=== PATIENT | male | born 1950 | race Caucasian/White ===

== ENCOUNTER 2021-12-30 19:15 | Inpatient (IN) | payer MEDICARE ==
[~2021-12-30] VITALS: Ht 172.7 cm; Wt 59.0 kg
[2021-12-30 19:59] LABS: BASOPHILS ABSOLUTE AUTO 0.08 K/mm3 (0.00-0.23); BASOPHILS PERCENT AUTO 1 % (0-2); EOSINOPHILS ABSOLUTE AUTO 0.17 K/mm3 (0.00-0.68); EOSINOPHILS PERCENT AUTO 1 % (0-6); Hematocrit 42.3 % (37.0-53.0); Hemoglobin 14.4 g/dL (13.5-17.5); IMMATURE GRAN ABSOLUTE AUTO 0.04 K/mm3 (0.00-0.10); IMMATURE GRAN PERCENT AUTO 0 % (0-1); LYMPHOCYTES ABSOLUTE AUTO 1.54 K/mm3 (0.84-5.20); LYMPHOCYTES PERCENT AUTO 10 % (21-46); MONOCYTES ABSOLUTE AUTO 1.75 K/mm3 (0.16-1.47); MONOCYTES PERCENT AUTO 12 % (4-13); Mean Corpuscular HGB 31.3 pg (26.0-34.0); Mean Corpuscular Volume 92 fL (80-100); Mean Platelet Volume 8.8 fL (9.1-12.4); NEUTROPHILS ABSOLUTE AUTO 11.63 K/mm3 (1.96-9.15); NEUTROPHILS PERCENT AUTO 77 % (41-73); Platelet Count 344 K/mm3 (150-400); RDW Coefficient Variation 11.3 % (11.7-14.2); RDW Standard Deviation 38.4 fL (35.1-46.3); White Blood Cell Count 15.21 K/mm3 (4.00-11.30)
[2021-12-30 20:16] LABS: Alanine Aminotransfer (ALT/SGP 20 U/L (12-78); Albumin, Blood 3.4 g/dL (3.4-5.0); Albumin/Globulin Ratio 0.7 (0.8-1.8); Alk Phos 100 U/L (50-136); Anion Gap 8 mmol/L (6-16); Aspartate Aminotrans (AST/SGOT 17 U/L (12-37); Bilirubin, Total 0.4 mg/dL (0.1-1.0); Blood Urea Nitrogen 13 mg/dL (8-24); CO2, Blood 27 mmol/L (21-32); Chloride, Blood 101 mmol/L (98-108); Creatinine, Blood 0.87 mg/dL (0.60-1.20); Globulin, Blood 4.7 g/dL (2.2-4.0); Glomerular Filtration Rate >60 (60-); Glucose, Blood 102 mg/dL (70-99); Potassium, Blood 3.6 mmol/L (3.5-5.5); Sodium, Blood 136 mmol/L (136-145); Total Protein, Blood 8.1 g/dL (6.4-8.2)
[2021-12-30 20:50] LABS: Source, Urine Clean Catch
[2021-12-30 20:54] LABS: Bilirubin, Urine Neg (Neg); Blood, Urine Neg (Neg); Glucose Qualitative, Urine Neg (Neg); Ketones, Urine Neg (Neg); Leukocyte Esterase, Urine Neg (Neg); Nitrite, Urine Neg (Neg); Protein, Urine Neg (Neg); Specific Gravity, Urine 1.015 (1.003-1.022); Urobilinogen, Urine NORM (Normal)
[2021-12-30 21:10] LABS: Appearance, Urine Clear (Clear); Color, Urine Yellow (P-Yellow)
--- NOTE | 2021-12-31 03:34 | NUR ---
PATIENT IS A NEW ADMIT FROM THE ED. AXOX 4 AND SELF TRANSFER FROM [facility] TO BED. NS INFUSING FROM THE ED @100 mL/HR. REPORTS MINIMAL LLQ PAIN WITH A 2/10 ON THE PAIN SCALE, NOT ABLE TO DESCRIBE THE PAIN AT THIS TIME. SPOUSE PRESENT ON ADMIT. REPORTS NO SURGICAL HX AND ON NO MEDICATION. SURGICAL CONSULT CALLED INTO DR RUTLEDGE ANSWERING SERVICE. ON ROOM AIR. TELEMETRY PLACED AND NSR 75. DENIES SOB AND N/V. VSS/AFEBRILE. ORIENTED TO ROOM AND CALL LIGHT SYSTEM. WILL CONTINUE TO MONITOR.
[2021-12-31 08:31] LABS: BASOPHILS ABSOLUTE AUTO 0.07 K/mm3 (0.00-0.23); BASOPHILS PERCENT AUTO 1 % (0-2); EOSINOPHILS ABSOLUTE AUTO 0.21 K/mm3 (0.00-0.68); EOSINOPHILS PERCENT AUTO 2 % (0-6); Hematocrit 38.5 % (37.0-53.0); IMMATURE GRAN ABSOLUTE AUTO 0.04 K/mm3 (0.00-0.10); IMMATURE GRAN PERCENT AUTO 0 % (0-1); LYMPHOCYTES ABSOLUTE AUTO 1.73 K/mm3 (0.84-5.20); LYMPHOCYTES PERCENT AUTO 14 % (21-46); MONOCYTES ABSOLUTE AUTO 1.68 K/mm3 (0.16-1.47); MONOCYTES PERCENT AUTO 14 % (4-13); Mean Corpuscular HGB 31.3 pg (26.0-34.0); Mean Corpuscular HGB Conc 33.8 g/dL (31.5-36.5); Mean Corpuscular Volume 93 fL (80-100); Mean Platelet Volume 8.7 fL (9.1-12.4); NEUTROPHILS ABSOLUTE AUTO 8.47 K/mm3 (1.96-9.15); NEUTROPHILS PERCENT AUTO 69 % (41-73); Platelet Count 301 K/mm3 (150-400); RDW Coefficient Variation 11.5 % (11.7-14.2); RDW Standard Deviation 39.1 fL (35.1-46.3); Red Blood Cell Count 4.15 M/mm3 (4.30-5.90)
[2021-12-31 08:51] LABS: Alanine Aminotransfer (ALT/SGP 17 U/L (12-78); Albumin, Blood 2.9 g/dL (3.4-5.0); Albumin/Globulin Ratio 0.7 (0.8-1.8); Alk Phos 79 U/L (50-136); Anion Gap 9 mmol/L (6-16); Aspartate Aminotrans (AST/SGOT 13 U/L (12-37); Bilirubin, Total 0.5 mg/dL (0.1-1.0); Blood Urea Nitrogen 11 mg/dL (8-24); Bun/Creatinine Ratio 13.4 (12.0-20.0); CO2, Blood 25 mmol/L (21-32); Calcium, Blood 8.4 mg/dL (8.5-10.1); Chloride, Blood 108 mmol/L (98-108); Creatinine, Blood 0.82 mg/dL (0.60-1.20); Globulin, Blood 4.1 g/dL (2.2-4.0); Glomerular Filtration Rate >60 (60-); Glucose, Blood 100 mg/dL (70-99); Potassium, Blood 3.9 mmol/L (3.5-5.5); Sodium, Blood 142 mmol/L (136-145)
--- NOTE | 2021-12-31 09:34 | NUR ---
PAGED DR RUTLEDGE- PT IS NPO AND WOULD LIKE TO KNOW WHEN THE DR WILL BE COMING IN TO SEE HIM AND IF HE NEEDS TO BE NPO TODAY FOR POSSIBLE PROCEDURE. PT SPOUSE IS AT THE BEDSIDE AND NEEDS TO LEAVE FOR AN APPOINTMENT BUT DOES NOT WANT TO MISS THE DR ROUNDING.
[2021-12-31] MEDS ORDERED: FLAX PO (15:18)
[2021-12-31] MEDS ORDERED: CENTRUM SILVER1 EAC2 PO (15:18)
--- NOTE | 2021-12-31 15:26 | NUR ---
Patient tells me about his possible upcoming procedure or the possibility of managing his symptoms with medication. He admits to being nervous about anything that might be invasive at all. Pt then talks at length about his love of family, of God and of music. Pt plays guitar and it is what inspires and fills him. I provide therapeutic lsitening, anxiety containment and prayer. Pt responds well and shows signs of increased peace.
--- NOTE | 2021-12-31 19:59 | NUR ---
SHIFT SUMMARY- DR RUTLEDGE CAME TO SEE THE PT THIS EVENING, HE EXPLAINED WHAT THE PLAN IS GOING FORWARD. HE STATED HE WILL NOT TAKE THE PT STRAIGHT TO SURGERY HE WOULD LIKE TO CONTINUE IV ABX FOR SEVERAL DAYS AND SEE IF IT CLEARS UP WITHOUT BEING SO INVASIVE. THE PT IS VERY AGREEABLE TO THIS. DR RUTLEDGE TOLD THE PT HE WILL LIKELY BE IN THE HOSPITAL FOR 4-5 DAYS, PT IS AWARE AND AGREEABLE. PASSED ALL ON IN BEDSIDE REPORT WITH NIGHT RN. PT CURRENTLY SITTING UP IN BED CALL LIGHT IN REACH, SPOUSE WENT HOME FOR THE NIGHT. PT HAS BEEN UP INDEPENDENTLY T/O THE DAY. AT SHIFT CHANGE THE PT REQUESTED ORAL PAIN MEDICATION IF POSSIBLE, NIGHT RN AWARE.
--- NOTE | 2021-12-31 22:58 | NUR ---
HOSPITALIST DR BUITRAGO ORDERD OXYCODONE 5 MG Q4 FOR PAIN MANAGEMENT
--- NOTE | 2022-01-01 04:15 | NUR ---
SHIFT SUMMARY PATIENT HAD NO ACUTE CHANGES OBSERVED. AXOX 4 AND INDEPENDENT IN ROOM. REPORTED LLQ PAIN AND IV FENTANYL 50 MCG GIVEN PER EMAR. HOSPITALIST DR BUITRAGO ORDERED OXYCODONE 5 MG Q4 PER PATIENT REQUEST FOR AN ORAL PAIN MEDICATION. DENIES CHEST PAIN, SOB, AND N/V. VSS/AFEBRILE. PIV REMAINS INTACT. IV ABX INFUSED. TELEMETRY IS NSR. COOPERATIVE WITH CARE. CALL LIGHT IN REACH. BED IN LOWEST POSITION. WILL CONTINUE TO MONITOR UNTIL DAY SHIFT NURSE ASSUMES CARE.
[2022-01-01 05:36] LABS: Hematocrit 42.4 % (37.0-53.0); Hemoglobin 13.9 g/dL (13.5-17.5); Mean Corpuscular HGB 30.8 pg (26.0-34.0); Mean Corpuscular HGB Conc 32.8 g/dL (31.5-36.5); Mean Corpuscular Volume 94 fL (80-100); Platelet Count 368 K/mm3 (150-400); RDW Coefficient Variation 11.4 % (11.7-14.2); RDW Standard Deviation 39.7 fL (35.1-46.3); Red Blood Cell Count 4.52 M/mm3 (4.30-5.90); White Blood Cell Count 6.25 K/mm3 (4.00-11.30)
[2022-01-01 05:51] LABS: Anion Gap 7 mmol/L (6-16); Blood Urea Nitrogen 7 mg/dL (8-24); Bun/Creatinine Ratio 8.9 (12.0-20.0); CO2, Blood 25 mmol/L (21-32); Calcium, Blood 8.5 mg/dL (8.5-10.1); Chloride, Blood 110 mmol/L (98-108); Creatinine, Blood 0.79 mg/dL (0.60-1.20); Glomerular Filtration Rate >60 (60-); Glucose, Blood 90 mg/dL (70-99); Potassium, Blood 3.8 mmol/L (3.5-5.5); Sodium, Blood 142 mmol/L (136-145)
--- NOTE | 2022-01-01 20:55 | NUR ---
SHIFT SUMMARY- PT HAS HAD NO ACUTE CHANGES T/O THE SHIFT. HE HAD A FULL SHOWER AND MOVED INDEPENDENTLY IN THE HALLS. PAIN SEEMS WELL MANAGED WITH PO PAIN MEDICATION. DR RUTLEDGE CAME TO SEE THE PT THIS EVENING AND ORDERED A DIET INCREASE TO FULL LIQUID IN THE MORNING, CALLLED TO SEE IF IT WAS OK FOR THE PT TO HAVE SOME FULL LIQUIDS THIS EVENING AND HE STATED THAT WAS OK. PT HAD A CHOCOLATE PUDDING AT THAT TIME WHICH HE SEEMED TO TOLLERATE WELL. BEDSIDE REPORT COMPLETED WITH NIGHT RN. PT UP IN BED, CALL LIGHT IN REACH NO S&S OF DISTRESS NOTED.
--- NOTE | 2022-01-02 04:48 | NUR ---
SHIFT SUMMARY 71 YR M ADMITTED ON 12/30/21 FOR ABSCESS IN SIG COLON. FULL CODE. NO ACUTE CHANGES THIS SHIFT. PT DENIES PAIN AND ONLY STATES DISCOMFORT. HE IS UP AND INDEPENDANT IN THE ROOM. DIET WAS ADVANCED TODAY AND HE HAD TOLERATED WELL, NO N/V. HE IS PLEASANT AND COOPERATIVE. CALL LIGHT IN REACH AND BED IN LOW POSITION.
[2022-01-02] MEDS ORDERED: Percocet 5-3251 EACH PO (15:04)
[2022-01-02] MEDS ORDERED: [UNRECOGNIZED DRUG - CODE] PO (15:06)
[2022-01-02] MEDS ORDERED: CIPR250 PO (15:07)
[2022-01-02] MEDS ORDERED: VISBIOME 112.51 EACH PO (15:07)
[2022-01-02] MEDS ORDERED: METR500 PO ×2 (15:08→15:09)
--- NOTE | 2022-01-02 15:39 | NUR ---
PT DISCHARGED 1520 WITH INSTRUCTIONS. SENT HOME WITH BELONGINGS. HAS HARD COPY OF PERCOCET SCRIPT. MEDS FAXED TO [facility]. REFUSED WALKER AND AMBULATED TO PRIVATE CAR WITH ESCORT.
== END 2022-01-02 15:28 | disposition home or self-care (01) | DRG 872 ==
LOC: ER 19:15 → MEDS 23:48
PROVIDERS: Internal Medicine; Physician Assistant; ADMIT Internal Medicine
DX: A41.9 Sepsis, unspecified organism (principal); K57.20 Diverticulitis of large intestine with perforation and abscess without bleeding; Z98.52 Vasectomy status; Z79.899 Other long term (current) drug therapy
CPT/HCPCS: 36415; 74177; 80048; 80053; 81003; 85025; 85027; 87040; 96365; 96375; 99285-25; A9270; J0295; J3010; J7030; Q9967